=== PATIENT | male | born 1990 | race Two or more races ===

== ENCOUNTER 2018-01-07 18:31 | Emergency (ER) | payer SELFPAY ==
--- NOTE | 2018-01-07 19:45 | EDM.PDOC ---
ED HPI GENERAL MEDICAL PROBLEM - General Chief Complaint: Skin Complaint Stated Complaint: BURNING IN GENITAL AREA Time Seen by Provider: 01/07/18 19:04 Source of Information: Reports: Patient History Limitations: Reports: No Limitations - History of Present Illness INITIAL COMMENTS - FREE TEXT/NARRATIVE: 27 y/o M with chief complaint of ulceration on his penis. It has been present for 3-4 days. Thought it was due to trauma from masterbating. However, his girlfriend was diagnosed with possible herpes outbreak so he wanted to get it checked out. States he has some genital area itching as well. The ulcer is painful when touched, otherwise not painful. No discharge. No additional skin or genital rash. No fever/recent illness. No penile discharge. No dysuria. Sexually active with a female partner, not using condoms. Denies known hx of STD infection previously. - Related Data Allergies Allergy/AdvReac Type Severity Reaction Status Date / Time No Known Allergies Allergy Verified 01/07/18 18:51 Home Meds: Home Meds . [No Known Home Meds] 01/07/18 [History] Past Medical History - Past Health History Medical/Surgical History: Denies Medical/Surgical History - Past Surgical History Other Musculoskeletal Surgeries/Procedures:: Bilateral knee surgery Social & Family History - Family History Family Medical History: Noncontributory - Tobacco Use Smoking Status *Q: Never Smoker - Recreational Drug Use Recreational Drug Use: Yes Drug Use in Last 12 Months: Yes Recreational Drug Type: Reports: Marijuana/Hashish ED ROS GENERAL - Review of Systems Review Of Systems: See Below Constitutional: Denies: Fever HEENT: Reports: No Symptoms Respiratory: Reports: No Symptoms Cardiovascular: Reports: No Symptoms GI/Abdominal: Reports: No Symptoms : Reports: Other (ulcer) Musculoskeletal: Reports: No Symptoms Skin: Denies: Rash Neurological: Reports: No Symptoms ED EXAM, SKIN/RASH Exam: See Below Exam Limited By: No Limitations General Appearance: Alert, WD/WN, No Apparent Distress Eye Exam: Bilateral Eye: Normal Inspection Ears: Normal External Exam Nose: Normal Inspection Throat/Mouth: Normal Inspection, Normal Voice, No Airway Compromise Head: Atraumatic, Normocephalic Neck: Normal Inspection Respiratory/Chest: No Respiratory Distress GI/Abdominal: Non-Tender (Male) Exam: Other (+ small ulcer on R superior aspect of the glans. No discharge. +tender. ). No: Circumcised, Rash, Scrotal Swelling, Urethral Discharge Extremities: Normal Inspection Neurological: Alert, Oriented, Normal Cognition Psychiatric: Normal Affect, Normal Mood Skin: Warm, Intact, Normal Color, No Rash Course - Vital Signs Last Recorded V/S: Last Vital Signs Temp 37.5 C 01/07/18 18:48 Pulse 83 01/07/18 18:48 Resp 16 01/07/18 18:48 BP 118/71 01/07/18 18:48 Pulse Ox 97 01/07/18 18:48 - Orders/Labs/Meds Orders: Active Orders 24 hr Category Date Time Status RAPID PLASMA REAGIN,RPR [CHEM] Stat Lab 01/07/18 20:05 Received - Re-Assessments/Exams Free Text/Narrative Re-Assessment/Exam: 01/07/18 22:44 Lab notified me that his RPR will not result until Sunday (2 days from now). Advised him to f/u with walk in clinic for result and also recheck of penile ulcer. Departure - Departure Time of Disposition: 22:45 Disposition: Home, Self-Care 01 Clinical Impression: Male genital ulcer - Discharge Information Instructions: Genital Herpes Referrals: PCP,None [Primary Care Provider] - Forms: ED Department Discharge Additional Instructions: 1. Follow up with the walk in clinic for lab results and to reevaluate your ulcer this week or Sunday. Call [phone] to schedule. 2. Meanwhile, put antibiotic ointment on ulcer 2-3 times daily. 3. No sexual activity until ulcer has completely healed. - My Orders Last 24 Hours: My Active Orders 01/07/18 20:05 RAPID PLASMA REAGIN,RPR [CHEM] Stat - Assessment/Plan Last 24 Hours: My Active Orders 01/07/18 20:05 RAPID PLASMA REAGIN,RPR [CHEM] Stat
== END 2018-01-07 22:11 | disposition home or self-care (01) ==
LOC: JD.ED 18:31
DX: N48.5 Ulcer of penis (principal)
CPT/HCPCS: 36415; 86592; 99283